=== PATIENT | female | born 1960 | race Caucasian/White ===

== ENCOUNTER 2021-12-26 13:20 | Outpatient (CLI) | payer OTHER, SELFPAY ==
--- NOTE | ~2021-12-26 | MR_ITS ---
EXAMINATION: MR lumbar spine wo con DATE: 12/26/2021 13:52 INDICATION: Low back pain. TECHNIQUE: Magnetic resonance imaging (MRI) of the lumbar spine was performed without intravenous con trast. Sequences included sagittal T2-weighted FSE, sagittal T2-weighted FS FSE, sagittal T1-weighted FSE, and axial T2-weighted FSE. COMPARISON: None FINDINGS: There is 4 degrees levocurvature of lumbar spine. S1 is a transitional segment. Vertebral b dina heights are normal. There is 5 mm anterolisthesis of L5 on S1. Intervertebral disc heights are no rmal. The distal spinal cord signal intensity is normal. The conus medullaris is at L1-L2. The follow ing disc levels are specifically discussed: L1-L2: There is a left central protrusion with annular fissure. There is mild bilateral facet joint o steoarthritis. There is no neural foraminal stenosis. There is mild central canal stenosis. L2-L3: The disc does not extend beyond the endplate margin. There is mild bilateral facet joint osteo arthritis. There is no neural foraminal stenosis. There is no central canal stenosis. L3-L4: The disc does not extend beyond the endplate margin. There is mild bilateral facet joint osteo arthritis. There is no neural foraminal stenosis. There is no central canal stenosis. L4-L5: The disc is bulging. There is moderate bilateral facet joint osteoarthritis. There is mild iris ateral neural foraminal stenosis. There is no central canal stenosis. L5-S1: The disc does not extend beyond the endplate margin. There is severe bilateral facet joint ost eoarthritis. There is mild bilateral neural foraminal stenosis. There is no central canal stenosis. IMPRESSION: 1. Mild lumbar spondylosis. Reviewed, dictated and finalized at location A. IMPRESSION: 1. Mild lumbar spondylosis.
== END 2021-12-26 13:21 ==
PROVIDERS: PCP Nurse Practitioner Family; Visit Provider Internal Medicine
DX: S32.000A Wedge compression fracture of unspecified lumbar vertebra, initial encounter for closed fracture (principal); M47.816 Spondylosis without myelopathy or radiculopathy, lumbar region
CPT/HCPCS: 72148